=== PATIENT | female | born 1990 | race Caucasian/White ===

== ENCOUNTER 2018-12-03 12:06 | Emergency (ER) | payer OTHER ==
[2018-12-03] MEDS ORDERED: MIDAZOLAM 2 MG/2 ML VIAL IVP ONE (12:07)
[2018-12-03] MEDS ORDERED: KETAMINE 500 MG/10 ML VIAL IVP ONE (12:07)
[2018-12-03] MEDS ORDERED: LIDOCAINE 1%-EPI 1:100000 20 ML MDV SUBQ STA (13:07)
--- NOTE | 2018-12-03 13:11 | ED Physician Documentation ---
History of Present Illness - Stated complaint Stated Complaint: FEMALE - Chief complaint Chief Complaint: General - History obtained from History obtained from: Patient - History of Present Illness Timing: Today Pain level max: 8 Pain level now: 8 - Additonal information Additional information: 28-year-old female states that she had a hemorrhoid banded recently at [facility] in [place]. She states increasing pain and swelling today. Worse with movement and palpation. Nothing makes it better. Review of Systems Constitutional: denies: Fever, Chills GI: denies: Vomiting, Diarrhea : denies: Now [facility] PAST MEDICAL HISTORY - Past Medical History Past Medical History: No - Past Surgical History Past Surgical History: No - Allergies Allergies/Adverse Reactions: Allergies Allergy/AdvReac Type Severity Reaction Status Date / Time No Known Drug Allergies Allergy Verified 12/03/18 12:16 - Living Situation Living Situation: reports: With family Living Arrangement: reports: At home - Social History Does the pt have substance abuse?: No - Family History Family history: reports: Non contributory PD ED PE NORMAL - Vitals Vital signs reviewed: Yes - General General: Alert and oriented X 3, No acute distress - HEENT HEENT: Moist mucous membranes - Rectal Rectal: Other (Thrombosed external hemorrhoid, superior aspect of the anus. The band is on top of the hemorrhoid. Not attached.) - Derm Derm: Warm and dry - Neuro Neuro: Alert and oriented X 3 Results - Vitals Vitals: Vital Signs - 24 hr 12/03/18 12/03/18 12/03/18 12:13 13:56 14:02 Temperature 36.7 C Heart Rate 71 80 83 Respiratory 18 12 11 L Rate Blood Pressure 124/79 146/77 H 134/73 H O2 Saturation 98 100 100 12/03/18 12/03/18 12/03/18 14:07 14:10 14:15 Temperature Heart Rate 99 124 H 120 H Respiratory 20 18 18 Rate Blood Pressure 149/110 H 161/105 H 158/104 H O2 Saturation 99 100 100 12/03/18 12/03/18 12/03/18 14:20 14:30 14:35 Temperature Heart Rate 124 H 90 86 Respiratory 17 12 12 Rate Blood Pressure 146/93 H 142/93 H 142/89 H O2 Saturation 100 100 99 Oxygen O2 Source Room air PD MEDICAL DECISION MAKING - ED course Complexity details: re-evaluated patient, considered differential, d/w patient, d/w it systems analyst consultant ED course: 28-year-old female presents to the emergency department with a thrombosed external hemorrhoid. Appears to be a failed banding. Discussed with general surgery, Dr. Thomas who will see the patient in the emergency department. Dr. Thomas came and removed the thrombosed hemorrhoid. He wrote prescriptions for the patient. We will have her follow-up with him as an outpatient. Patient counseled regarding signs and symptoms for which I believe and urgent re- evaluation would be necessary. Patient with good understanding of and agreement to plan and is comfortable going home at this time This document was made in part using voice recognition software. While efforts are made to proofread this document, sound alike and grammatical errors may occur. Departure - Departure Disposition: 01 Home, Self Care Clinical Impression: External thrombosed hemorrhoids Condition: Good Instructions: ED Hemorrhoids Follow-Up: Maximus Shaikh MD [Primary Care Provider] - Jakob Thomas MD [Provider Admit Priv/Credential] - Within 1 week Comments: Use the medications as prescribed. Return if you worsen. Follow-up with Dr. Thomas office within 1 week for repeat evaluation. Do not drink alcohol or drive while on narcotic pain medicine. Note that many narcotic pain relievers also contain tylenol/acetaminophen. Please ensure that your total dose of acetaminophen from all sources does not exceed 3 grams (3000mg) per day. You may constipated on this medication, take a stool softener such as "Colace" twice a day while you are on it. Also recommend a xrum-ire-kelobhn laxative such as senna or MiraLAX any day that you do not have a bowel movement. If you received narcotic pain medication in the emergency department, do not drive or operate machinery for the next 24 hours. Discharge Date/Time: 12/03/18 15:00
--- NOTE | 2018-12-03 13:32 | ANESTHESIA ---
Pre-Anesthesia VS, & Labs - Diagnosis thrombosed hemmorroid - Procedure ligation of hemmorhoid Vital Signs: Temp Pulse Resp BP Pulse Ox 36.7 C 71 18 124/79 98 12/03/18 12:13 12/03/18 12:13 12/03/18 12:13 12/03/18 12:13 12/03/18 12:13 Height 5 ft 5 in Weight (kg) 64.864 kg Body Mass Index 23.8 - NPO Last Food Intake: crackers/banana@11 - Is Patient ?: No Home Medications and Allergies Allergies/Adverse Reactions: Allergies Allergy/AdvReac Type Severity Reaction Status Date / Time No Known Drug Allergies Allergy Verified 12/03/18 12:16 Anes History & Medical History - Anesthetic History Anesthesia Complications: reports: No previous complications Family history of Anesthesia Complications: Denies Family history of Malignant Hyperthermia: Denies - Surgical History Orthopedic: ACL reconstruction (x2) Exam General: Alert, Oriented x3, Cooperative Dental: WNL Mouth Openin Fingerbreadth Neck Mobility: Normal Mallampati classification: II Thyromental Distance: 4-6 cm Respiratory: Lungs clear, Normal breath sounds Cardiovascular: Regular rate Neurological: Normal speech Mental/Cognitive Status: Alert/Oriented X3, Normal for patient Plan Anesthesia Type: MAC Consent for Procedure(s) Verified and Reviewed: Yes Code Status: Attempt Resuscitation ASA classification: 2-Mild systemic disease Is this case an emergency?: No
[2018-12-03] MEDS ORDERED: BUPIVACAINE 0.5%-EPI 1:200000 PF 10 ML VIAL ONE (13:41)
[2018-12-03] MEDS ORDERED: LIDOCAINE JELLY 2% 5 ML TUBE TOP ONE (13:41)
[2018-12-03 14:42] VITALS: BP 142/89
--- NOTE | 2018-12-03 23:57 | CONSULTATION NOTE ---
Referring Provider Name of Referring Provider:: Dr. Mack Chaidez Consult Date: 12/03/18 Chief Complaint - Chief Complaint Chief Complaint: Thrombosed external hemorrhoid History of Present Illness - Admitted From Admitted From:: Not admitted - History Obtained From Records Reviewed: Yes History obtained from: Patient Exam Limitations: None - History of Present Illness HPI Comment/Other: This very pleasant but scared 28 year old female presents to our ED after a hemorrhoid was painfully banded at [facility]. The band has fallen off and the pain is persistent. There is some associated bleeding. The patient is very feeling formal of further pain. She states that she was not given instructions on the postoperative care. History - Past Medical History Cardiovascular: reports: None Respiratory: reports: None Neuro: reports: None Endocrine/Autoimmune: reports: None GI: reports: None MANAGER ACUTE: reports: None : reports: None HEENT: reports: None Psych: reports: None Musculoskeletal: reports: None MRSA Hx?: No - Past Surgical History Ortho: reports: ACL reconstruction - Family & Social History Living arrangement: At home Living Situation: With family Meds/Allgy - Allergies Allergies/Adverse Reactions: Allergies Allergy/AdvReac Type Severity Reaction Status Date / Time No Known Drug Allergies Allergy Verified 12/03/18 12:16 Review of Systems - Constitutional Constitutional: reports: Other (Very targeted examination did not include an extensive review of systems. 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 No surrounding erythema. Minimal bleeding.) Conclusion/Plan - Diagnosis Diagnosis: Thrombosed external hemorrhoid - Plan Plan: Excision of thrombosed external hemorrhoid with local anesthesia as well as monitored anesthesia care to be done in the emergency department.. The indications, procedure, alternatives including no operation, and possible complications including but not limited to infection, bleeding and transient incontinence were discussed with the patient all questions were answered. Verbal and written consent was obtained. I explained that this will be done as an outpatient procedure and the patient should be able to go home thereafter. I explained that I would be giving her pain medications as well as stool softeners. I explained that if she has any questions and/or concerns that she is to contact me and I gave her my name and number. Additionally I explained that she should keep the area clean and dry with soap and water. I explained that her discomfort will be rather acute over the first week but should improve thereafter. 45 minutes of [id number] time spent with the patient, the majority of which was spent in discussion, coordination of care, and completion of the requisite paperwork Dragon disclaimer: This document was created in part using voice recognition technology. Because of the inherent limitations of the system ([employer]'s Dragon Dictate user manual states that the licensee understands that speech recognition is a statistical process and that recognition errors are inherent in the process), occasional same sounding word substitutions and grammatical errors do occur and persist despite proofreading. Please read this document for context.
--- NOTE | 2018-12-04 | OPERATIVE REPORT ---
Operative Report - General Planned Procedure: Excision thrombosed hemorrhoid Pre-Op Diagnosis: Thrombosed hemorrhoid Procedure Performed: Excision thrombosed hemorrhoid Post Op Diagnosis: Same - Procedure Note Primary Surgeon: Jakob Thomas MD Anesthesia Provider: Derick Wheeler CRNA Anesthesia Technique: Local (30 mL 1/2% marcaine with epinephrine), MAC Estimated Blood Loss (mL): 2 Drain/Tube Type: Other (None.) Complications: None. - Other Other Information/Narrative: OPERATIVE DESCRIPTION/REPORT: After verbal and written informed consent was obtained detailing the risks of infection, bleeding, and transient incontinence the patient was placed on her left lateral side and her anus and perianal area were sterilely prepped. Derick Wheeler CRNA sedated and anesthetized the patient for the entire procedure. The patient was prepped and draped in the usual sterile manner. A "time in" then confirmed that the patient was identified with 3 identifiers (name, date and medical record number), the history and physical was in the chart, the signed consent confirming the procedure was in the chart, the patient was in the correct position, the aforementioned prophylactic measures were in place or given, we had the correct personnel and equipment to complete the procedure and that anesthesia, surgery and nursing were given an opportunity to express any concerns. With the agreement of everyone in the room, we proceeded with the operation. After injecting the base of the hemorrhoid with % marcaine with epinephrine, the hemorrhoid was checked and found to be insensate. With the patient adequately sedated and anesthetized, serial application of the LigaSure was used to excise the thrombosed hemorrhoid. No significant bleeding was noted. The tissue was sent for pathologic evaluation. At this point a time out was performed that confirmed that all the counts were correct, the procedure that was performed, the blood loss, the IV fluids administered, and the patients condition. All surgical counts were reported as correct. A dressing was applied. Having tolerated the procedure well, the patient was subsequently awakened and was informed that the procedure had been completed. Please note that the patient's significant other was holding her hand during the entire procedure. Exact directions were given to the patient and her significant other and prescriptions were written for pain medication as well as stool softeners. The patient was instructed to follow-up with me in 7 to 10 days for a wound check. I specifically gave the patient my name and telephone number in order to reach me with any questions or concerns. Vanessaon disclaimer: This document was created in part using voice recognition technology. Because of the inherent limitations of the system ([employer]'s Dragon Dictate user manual states that the licensee understands that speech recognition is a statistical process and that recognition errors are inherent in the process), occasional same sounding word substitutions and grammatical errors do occur and persist despite proofreading. Please read this document for context.
== END 2018-12-03 15:00 | disposition home or self-care (01) ==
LOC: ED 12:06
DX: K64.5 Perianal venous thrombosis (principal)
CPT/HCPCS: 46083; 46320; 99284